=== PATIENT | male | born 1960 | race Caucasian/White ===

== ENCOUNTER → 2017-01-29 | Outpatient (CLI) | payer BC ==
[~2017-01-29] VITALS: Ht 172.7 cm; Wt 122.5 kg
[~2017-01-29] MED LIST: ACET500C PO; CENTTAB PO; LISI10TA4 PO; METF1000 PO; METO25TA74 PO; NS 1,000 ML IV SCH; PLAV75TA38 PO; PROPOFOL 200 MG/20 ML VIAL As Ordered ONE; SIMV10TA2 PO; ePHEDrine SULFATE 25 MG/5 ML(5MG/ML) SYRINGE As Ordered ONE
--- NOTE | 2017-01-29 08:09 | ROOR ---
Patient Name: Rasta Sosa Procedure Date: 01/29/2017 7:52 AM Date of : 1960 Age: 56 Room: [facility] Gender: Male Note Status: Finalized Procedure: Colonoscopy Indications: Screening for colorectal malignant neoplasm Providers: Rasta FULLER MD Referring MD: BRIDGETT PEDRO MD Requesting Provider: Medicines: Monitored Anesthesia Care Complications: No immediate complications. Procedure: Pre-Anesthesia Assessment: - The heart rate, respiratory rate, oxygen saturations, blood pressure, adequacy of pulmonary ventilation, and response to care were monitored throughout the procedure. The Colonoscope was introduced through the anus and advanced to the cecum, identified by appendiceal orifice and ileocecal valve. The colonoscopy was performed without difficulty. The patient tolerated the procedure well. The quality of the bowel preparation was good. Findings: The perianal and digital rectal examinations were normal. A 5 mm polyp was found in the sigmoid colon. The polyp was sessile. The polyp was removed with a cold snare. Resection and retrieval were complete. Small Internal Hemorrhoids. The exam was otherwise without abnormality on direct and retroflexion views. (Exam: Complete, Prep: Good or Excellent.) Impression: - One 5 mm polyp in the sigmoid colon, removed with a cold snare. Resected and retrieved. - Small Internal Hemorrhoids. - The examination was otherwise normal on direct and retroflexion views. Recommendation: - Repeat colonoscopy in 3 years for surveillance. - Telephone endoscopist for pathology results in 2 weeks. Rasta Fuller MD Rasta FULLER MD 01/29/2017 8:08:22 AM This report has been signed electronically. Number of Addenda: 0 Note Initiated On: 01/29/2017 7:52 AM Estimated Blood Loss: Estimated blood loss: none.
[2017-01-29 08:35] VITALS: BP 125/64
== END | disposition home or self-care (01) ==
LOC: M OPP 07:08
PROVIDERS: ATTEND Internal Medicine Gastroenterology
DX: Z12.11 Encounter for screening for malignant neoplasm of colon (principal); D12.5 Benign neoplasm of sigmoid colon; K64.8 Other hemorrhoids; I10 Essential (primary) hypertension; E78.5 Hyperlipidemia, unspecified; E11.9 Type 2 diabetes mellitus without complications; Z95.5 Presence of coronary angioplasty implant and graft; Z79.84 Long term (current) use of oral hypoglycemic drugs; Z79.899 Other long term (current) drug therapy; Z88.8 Allergy status to other drugs, medicaments and biological substances; Z88.0 Allergy status to penicillin

== ENCOUNTER 2023-03-02 06:42 | Day surgery (SDC) | payer OTHER ==
[~2023-03-02] VITALS: Ht 172.7 cm; Wt 128.4 kg
[~2023-03-02 06:42] MED LIST changes: +ACET-1349 PO; +ACET-683 PO; +CLOP75TA99 PO; +INSULANT SC; +LISI10TA22 PO; -LISI10TA4 PO; +LORA-243 PO; -METF1000 PO; +METF10004 PO; +METO1TAB32 PO; -METO25TA74 PO; +NESI25TA PO; +NS 1,000 ML IV ONE; -NS 1,000 ML IV SCH; -PLAV75TA38 PO; -PROPOFOL 200 MG/20 ML VIAL As Ordered ONE; +ROSU20TA5 PO; -SIMV10TA2 PO; +SIMV10TA21 PO; +VITMTA PO; -ePHEDrine SULFATE 25 MG/5 ML(5MG/ML) SYRINGE As Ordered ONE
[2023-03-02] MEDS ORDERED: MIDAZOLAM INJ 2MG/2ML VIAL As Ordered ONE (08:17)
[2023-03-02] MEDS ORDERED: propofoL 200 MG/20 ML VIAL As Ordered ONE (08:31)
[2023-03-02 09:09] VITALS: BP 114/55
== END 2023-03-02 09:34 | disposition home or self-care (01) ==
LOC: M OPP 06:42
PROVIDERS: ATTEND Internal Medicine Gastroenterology
DX: Z12.11 Encounter for screening for malignant neoplasm of colon (principal); Z86.010 Personal history of colon polyps; D12.5 Benign neoplasm of sigmoid colon; Z79.01 Long term (current) use of anticoagulants; Z79.02 Long term (current) use of antithrombotics/antiplatelets; Z79.4 Long term (current) use of insulin; Z79.899 Other long term (current) drug therapy; Z88.6 Allergy status to analgesic agent; Z88.8 Allergy status to other drugs, medicaments and biological substances
CPT/HCPCS: 45385; 88305; J2250